=== PATIENT | female | born 1960 | race Caucasian/White ===

== ENCOUNTER 2016-10-26 07:15 | Emergency (ER) | payer OTHER, BC ==
[2016-10-26 07:29] VITALS: BP 129/82
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
== END 2016-10-26 09:30 | disposition home or self-care (01) ==
LOC: CC.ED 07:15
DX: S09.90XA Unspecified injury of head, initial encounter (principal); S16.1XXA Strain of muscle, fascia and tendon at neck level, initial encounter; S00.03XA Contusion of scalp, initial encounter; E78.00 Pure hypercholesterolemia, unspecified; J45.909 Unspecified asthma, uncomplicated; F32.9 Major depressive disorder, single episode, unspecified; F17.210 Nicotine dependence, cigarettes, uncomplicated; E21.3 Hyperparathyroidism, unspecified; Z90.49 Acquired absence of other specified parts of digestive tract; Z90.710 Acquired absence of both cervix and uterus; Z79.899 Other long term (current) drug therapy; V87.7XXA Person injured in collision between other specified motor vehicles (traffic), initial encounter
CPT/HCPCS: 70450; 72125; 99284

== ENCOUNTER → 2017-05-19 | Day surgery (SDC) | payer BC ==
[~2017-05-19] MED LIST: Lactated Ringers 1,000 ML IV SCH; Midazolam 1 MG/ML 2 ML SDV IV ONE; Propofol 200 MG/20 ML SDV IV ONE
[2017-05-19 14:47] VITALS: BP 108/71
--- NOTE | 2017-05-22 07:59 | OR ---
DATE OF OPERATION: 05/19/2017 PREOPERATIVE DIAGNOSIS: 1. CHEST PAIN. 2. SCREENING COLONOSCOPY. POSTOPERATIVE DIAGNOSIS: 1. CHEST PAIN. 2. SCREENING COLONOSCOPY. SURGEON: Johnny Underwood MD PROCEDURE: 1. EGD WITH FARAZ. 2. COLONOSCOPY WITH SNARE POLYPECTOMY X1. 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 COMPLICATIONS: None. SPECIMEN: 1. Antral FARAZ. 2. Ascending colon villous adenoma greater than 0.5 cm. FINDINGS: 1. Full-length EGD. 2. Small hiatal hernia with spontaneous GERD. No distal esophagitis or Kaminski's. 3. Full-length colonoscopy. 4. Villous adenoma proximal ascending colon. RECOMMENDATIONS: Routine medical care for patient's reflux. Given the size and morphology of this polyp, recommend a 3-year followup colonoscopy. INDICATIONS: The patient has been having some issues with lower chest pain substernally. Cardiac workup negative thus far. Dr. Kim wanted her to have an EGD. She has also never had a screening colonoscopy. DESCRIPTION OF PROCEDURE: The patient was prepped and draped, placed in the left lateral decubitus position. A lubricated Olympus gastroscope was inserted and easily intubated in the esophagus. The esophageal lining was benign in its entire course. The Z-line was crisp and sharp around 37 cm. There was a small hiatal hernia present with spontaneous reflux. No distal esophagitis, stricturing, ulceration, or Kaminski's changes. Scope advanced into the stomach through the pylorus into the second portion of duodenum. This and the duodenal bulb were benign. The scope was brought back into the stomach and retroflexed. The upper fundus and cardia were unremarkable. Upon straightening, no signs of any polyps, mass, ulcerations, or bleeding sites were seen in the stomach. A CLOtest was obtained. Air was then suctioned, scope removed without complication. A lubricated Olympus colonoscope was inserted and easily advanced to the cecum. Direct visualization of the ileocecal valve and appendiceal orifice was accomplished. The bowel prep was adequate. Upon withdrawal of scope, the cecal pouch was benign. In the proximal ascending colon, the patient had an approximately 6 to 7 mm villous adenoma removed with a snare and suctioned a polyp trap #1. The rest of the ascending and transverse colon were unremarkable. The left side of the colon showed no signs of any polyps, mass, ulceration, bleeding sites, no vascular abnormalities or signs of colitis. There were no significant diverticula. Rectal vault was unremarkable. Upon retroflexion in the rectum, there were no perianal lesions. Air was suctioned, scope removed without complication. JENNIFER/MARTHA /[id number]
== END ==
LOC: CC.SDS 12:48
PROVIDERS: ATTEND Family Medicine
DX: Z12.11 Encounter for screening for malignant neoplasm of colon (principal); D12.2 Benign neoplasm of ascending colon; K21.9 Gastro-esophageal reflux disease without esophagitis; K44.9 Diaphragmatic hernia without obstruction or gangrene; Z88.0 Allergy status to penicillin; Z79.899 Other long term (current) drug therapy
CPT/HCPCS: 43235; 45385; 87081; J2250; J2704; J7120

== ENCOUNTER → 2020-05-22 | Day surgery (SDC) | payer BC ==
[~2020-05-22] MED LIST changes: +Ketamine 200 MG/20 ML MDV ONE; -Lactated Ringers 1,000 ML IV SCH; -Midazolam 1 MG/ML 2 ML SDV IV ONE; +Phenylephrine 1% 10 MG/ML SDV ONE; -Propofol 200 MG/20 ML SDV IV ONE; +Propofol 200 MG/20 ML SDV ONE; +fentaNYL 100 MCG/2 ML SDV ONE
[2020-05-22] MEDS: Lactated Ringers 1,000 ML IV SCH (11:10)
[2020-05-22 13:05] VITALS: BP 120/72; PULSE 71
--- NOTE | 2020-05-25 09:05 | OR ---
DATE OF OPERATION: 05/22/2020 PREOPERATIVE DIAGNOSIS: HISTORY OF POLYPS. POSTOPERATIVE DIAGNOSIS: HISTORY OF POLYPS. SURGEON: Johnny Underwood MD PROCEDURE: FULL-LENGTH COLONOSCOPY WITH SNARE POLYPECTOMY X2, FORCEPS POLYPECTOMY X3. ANESTHESIA: MAC. COMPLICATIONS: None. SPECIMEN: 1. Villous adenomas x2, each 5 mm or less. 2. Three small hyperplastic polyps in distal sigmoid and rectal vault. FINDINGS: 1. Full-length colonoscopy. 2. Five polyps, 2 of them villous, 3 hyperplastic. RECOMMENDATIONS: Followup colonoscopy in 5 years. INDICATIONS: The patient had a prior history of a larger villous lesion removed from her ascending colon. She is due for a 3-year followup scope. DESCRIPTION OF PROCEDURE: The patient was prepped and draped, placed in the left lateral decubitus position. A lubricated Olympus colonoscope was inserted and easily advanced to the cecum. We were able to directly visualize the ileocecal valve and appendiceal orifice. The bowel prep was excellent. Upon withdrawal of the scope, the cecum and ascending colon were completely benign. Right at the hepatic flexure, the patient had a small 3 to 4 mm villous lesion removed easily with a snare and suctioned into polyp trap #1. The rest of the transverse and descending colons were unremarkable. In the proximal sigmoid colon, the patient had a 5 mm villous lesion along the haustral fold. It was very difficult to get out. We were able to get a snare around it and remove it in its entirety, suctioned into polyp trap #2 without problem. There were no diverticula through the sigmoid or any other lesions. In the most distal portion of the sigmoid near the rectosigmoid junction, the patient had a small hyperplastic polyp removed with a forceps in its entirety. In the proximal rectal vault, the patient had a small little cluster of hyperplastic polyps. Some of these were hard to see with complete air insufflation. We took 2 of the larger ones out, each probably 2 to 3 mm with the forceps without any problem. The rest of the rectal vault was benign. Retroflexion showed no perianal lesions. Air was suctioned, scope removed without complication. JENNIFER/MARTHA /[id number]
== END ==
LOC: CC.SDS 10:56
PROVIDERS: ATTEND Family Medicine
DX: Z12.11 Encounter for screening for malignant neoplasm of colon (principal); D12.5 Benign neoplasm of sigmoid colon; K62.1 Rectal polyp; J45.909 Unspecified asthma, uncomplicated; F32.9 Major depressive disorder, single episode, unspecified; K21.9 Gastro-esophageal reflux disease without esophagitis; E78.5 Hyperlipidemia, unspecified; E03.9 Hypothyroidism, unspecified; M81.0 Age-related osteoporosis without current pathological fracture; F17.210 Nicotine dependence, cigarettes, uncomplicated; G25.81 Restless legs syndrome; Z88.0 Allergy status to penicillin; Z79.899 Other long term (current) drug therapy; Z79.890 Hormone replacement therapy; Z98.890 Other specified postprocedural states; Z90.49 Acquired absence of other specified parts of digestive tract
CPT/HCPCS: J2370; J2704; J3010; J7120

== ENCOUNTER 2022-08-18 09:46 | Emergency (ER) | payer BC ==
[2022-08-18] MEDS ORDERED: Aspirin 81 MG Tab.Chew PO ONE (09:51)
[2022-08-18 10:21] LABS: PTT,PARTIAL THROMBOPLSTIN TIME 25.2 SEC (20.0-30.0)
[2022-08-18 10:23] LABS: CHLORIDE,CL 103 mEq/L (98-106); ESTIMATED GFR 73 mL/min (>=60); SODIUM,NA 140 mEq/L (136-145)
[2022-08-18 10:43] LABS: CORONAVIRUS COVID-19 NAA NEGATIVE (NEGATIVE); RESPIRATORY SYNCYTIAL VIR NAA NEGATIVE (NEGATIVE)
[2022-08-18 13:42] VITALS: BP 108/64; PULSE 79
== END 2022-08-18 13:40 | disposition home or self-care (01) ==
LOC: CC.ED 09:46
DX: R07.9 Chest pain, unspecified (principal); E78.00 Pure hypercholesterolemia, unspecified; R59.0 Localized enlarged lymph nodes; J32.0 Chronic maxillary sinusitis; Z88.0 Allergy status to penicillin; Z79.899 Other long term (current) drug therapy; Z20.822 Contact with and (suspected) exposure to COVID-19
CPT/HCPCS: 0241U; 36415; 70491; 71046; 80053; 82150; 83690; 83735; 84484; 85025; 85610; 85730; 93005; 99285; A9270; Q9967; 93010; 99284